=== PATIENT | male | born 2000 | race African-American/Black ===

== ENCOUNTER 2018-02-21 14:26 | Observation (INO) | payer BC ==
[2018-02-21 15:14] LABS: ADD MAN DIFF? NO
[2018-02-21 15:18] LABS: WHITE BLOOD COUNT 6.6 10^3/ul (4.8-10.8)
[2018-02-21 15:18] LABS: BASOPHILS % 0.6 % (0.0-2.0); EOSINOPHILS % 0.3 % (0.0-7.0); HEMATOCRIT 47.2 % (42.0-52.0); HEMOGLOBIN 14.8 g/dl (14.0-18.0); LYMPHOCYTES # 2.5 10^3/ul (0.8-2.9); LYMPHOCYTES % 38.1 % (18.0-55.0); MEAN CORPUSCULAR HEMOGLOBIN 24.8 pg (29.0-33.0); MEAN CORPUSCULAR HGB CONC 31.4 g/dl (32.0-37.0); MEAN CORPUSCULAR VOLUME 79.2 fl (72.0-104.0); MEAN PLATELET VOLUME 10.6 fl (7.4-10.4); MONOCYTE # 0.4 10^3/ul (0.3-0.9); MONOCYTES % 6.6 % (0.0-13.0); NEUTROPHIL # 3.6 10^3/ul (1.6-7.5); NEUTROPHILS % 54.2 % (30.0-74.0); PLATELET COUNT 257 10^3/UL (140-415); RED BLOOD COUNT 5.96 10^6/ul (4.70-6.10); RED CELL DISTRIBUTION WIDTH 13.6 % (11.5-14.5)
[2018-02-21] MEDS: SOD CHLORIDE 0.9% 1,000 ML IV (15:24)
[2018-02-21 15:37] LABS: ANION GAP 14 (8-16); BLOOD UREA NITROGEN 11 mg/dl (7-20); CARBON DIOXIDE 26 mmol/L (21-31); CHLORIDE 105 mmol/L (97-110); CREATININE 0.86 mg/dl (0.61-1.24); GLUCOSE 110 mg/dl (70-220); MAGNESIUM 2.2 mg/dl (1.7-2.5); POTASSIUM 4.2 mmol/L (3.5-5.1); SODIUM 141 mmol/L (135-144)
[2018-02-21 15:54] LABS: TROPONIN-I < 0.010 ng/ml (0.000-0.120)
[2018-02-21] MEDS: SOD CHLORIDE 0.9% 100 ML (16:11)
[2018-02-21] MEDS: IOHEXOL 100 ML (16:12)
[2018-02-21] MEDS ORDERED: ACETAMINOPHEN 325 MG TAB PO ×2 (17:00→18:30)
[2018-02-21] MEDS ORDERED: ONDANSETRON 4 MG INJ IV ×2 (17:00→18:30)
[2018-02-21] MEDS ORDERED: HYDROCODONE/APAP (5/325) TAB PO (18:30)
[2018-02-21] MEDS ORDERED: NACL 0.9% 3 ML SYG IV (18:30)
[2018-02-21] MEDS ORDERED: morphine 2 MG INJ IV (18:30)
[2018-02-21] MEDS ORDERED: DOCUSATE SODIUM 100 MG CAP PO (18:30)
[2018-02-21] MEDS: ZOLPIDEM 5 MG TAB PO (22:09)
[2018-02-22 09:03] LABS: ADD MAN DIFF? NO
[2018-02-22 09:13] LABS: BASOPHILS % 0.4 % (0.0-2.0); EOSINOPHILS # 0.1 10^3/ul (0.0-0.5); EOSINOPHILS % 0.5 % (0.0-7.0); HEMATOCRIT 43.7 % (42.0-52.0); HEMOGLOBIN 13.8 g/dl (14.0-18.0); LYMPHOCYTES # 3.1 10^3/ul (0.8-2.9); LYMPHOCYTES % 33.7 % (18.0-55.0); MEAN CORPUSCULAR HEMOGLOBIN 25.2 pg (29.0-33.0); MEAN CORPUSCULAR HGB CONC 31.6 g/dl (32.0-37.0); MEAN CORPUSCULAR VOLUME 79.7 fl (72.0-104.0); MEAN PLATELET VOLUME 11.2 fl (7.4-10.4); MONOCYTE # 0.8 10^3/ul (0.3-0.9); MONOCYTES % 8.5 % (0.0-13.0); NEUTROPHIL # 5.2 10^3/ul (1.6-7.5); NEUTROPHILS % 56.7 % (30.0-74.0); PLATELET COUNT 237 10^3/UL (140-415); RED BLOOD COUNT 5.48 10^6/ul (4.70-6.10); RED CELL DISTRIBUTION WIDTH 13.6 % (11.5-14.5)
[2018-02-22 09:13] LABS: WHITE BLOOD COUNT 9.1 10^3/ul (4.8-10.8)
[2018-02-22 09:38] LABS: ANION GAP 12 (8-16); BLOOD UREA NITROGEN 10 mg/dl (7-20); CALCIUM 9.7 mg/dl (8.4-10.2); CARBON DIOXIDE 28 mmol/L (21-31); CHLORIDE 104 mmol/L (97-110); CREATININE 0.87 mg/dl (0.61-1.24); GLUCOSE 84 mg/dl (70-220); MAGNESIUM 2.3 mg/dl (1.7-2.5); POTASSIUM 3.7 mmol/L (3.5-5.1); SODIUM 140 mmol/L (135-144)
[2018-02-22 09:50] LABS: HEMOGLOBIN A1C 5.9 % (0-5.9)
[2018-02-22] MEDS ORDERED: morphine LIQ (10 MG/5 ML) CUP PO (13:00)
[2018-02-22] MEDS: ZOLPIDEM 5 MG TAB PO (21:57)
== END 2018-02-23 14:15 | disposition home or self-care (01) ==
LOC: E/R 14:26 → TEL 16:49
DX: J93.11 Primary spontaneous pneumothorax (principal)
CPT/HCPCS: 36415; 71045; 71275; 80048; 83036; 83735; 84100; 84484; 85025; 93005; 99217; 99285-25; G0378

== ENCOUNTER 2019-04-05 23:22 | Emergency (ER) | payer OTHER ==
[2019-04-06] MEDS: FAMOTIDINE 20 MG INJ IV (01:33)
[2019-04-06] MEDS: SOD CHLORIDE 0.9% 1,000 ML IV (01:33)
[2019-04-06] MEDS: BELLADONNA/PHENOBARBITAL TAB PO (01:33)
[2019-04-06] MEDS: LIDOCAINE/MYLANTA 40 ML BTL PO (01:33)
== END 2019-04-06 03:48 | disposition home or self-care (01) ==
LOC: FTE 23:22
DX: K21.9 Gastro-esophageal reflux disease without esophagitis (principal)
CPT/HCPCS: 96361; 96374; 99284-25